=== PATIENT | female | born 2000 | race Caucasian/White ===

== ENCOUNTER 2023-04-16 13:23 | Inpatient (IN) | payer MEDICAID, SELFPAY ==
[2023-04-16 13:28] VITALS: BMI 34.7
[2023-04-16] MEDS: hyDROXYzine 25 mg Capsule 50 MG PO (13:58)
[2023-04-16 14:00] VITALS: BP 124/66; PULSE 86; RESP 18; TEMP 36.6; O2SAT 98
[2023-04-16] MEDS: LORazepam 2 mg/mL INJ 1 mL IM (15:42)
[2023-04-16] MEDS: diphenhydrAMINE 50 mg/mL SDV 1mL IM (15:42)
[2023-04-16] MEDS: haloperidol inj 5 mg/mL INJ 1 mL IM (15:42)
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
--- NOTE | 2023-04-16 15:51 | PC.NURSE ---
PT WAS A DIRECT ADMIT FROM JALEEL HENNESSY. PT HAS PAST HISTORY OF SUICIDE ATTEMPTS AND TOOK 20 BENADRYL. PT REPORTS THAT HER BEST FRIEND AND SHE BECAME REALLY SAD. PT HAS MULTIPLE SELF INFLICTED ABRASIONS TO THE BUE. PT STATES I ONLY DO IT WHEN I AM ANXIOUS. PT WAS RE-DIRECTABLE.
[2023-04-16 20:07] VITALS: BP 103/65; PULSE 75; RESP 15; TEMP 36.9; O2SAT 98
[2023-04-17 06:00] VITALS: BP 107/70; PULSE 66; RESP 16; TEMP 36.6; O2SAT 99
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
[2023-04-17] MEDS: buPROPion XL (24 HR) 150 mg Tablet PO (12:44)
[2023-04-17] MEDS: hyDROXYzine 25 mg Capsule 50 MG PO (13:36)
[2023-04-17] MEDS: OLANZapine 5 mg ODT PO (13:37)
[2023-04-17 14:00] VITALS: BP 99/60; PULSE 98; RESP 16; TEMP 36.8; O2SAT 99
[2023-04-17 20:25] VITALS: BP 113/66; PULSE 94; RESP 15; TEMP 36.9; O2SAT 97
[2023-04-18 06:00] VITALS: BP 108/57; PULSE 99; RESP 16; TEMP 36.7; O2SAT 96
[2023-04-18] MEDS: buPROPion XL (24 HR) 150 mg Tablet PO (08:58)
[2023-04-18] MEDS: OLANZapine 5 mg ODT PO (10:52)
--- NOTE | 2023-04-18 12:02 | P.NPUPN_ITS ---
Subjective NPU Subjective: Patient presented today reporting that she has a great fear that she is going to be kept for weeks. We continued to discuss that discharge planning is predicated on her functioning and that she has been here for few days and today is the first day that she has not had self aggressive behavior. We asked her continuing positive functioning and continuing the medication and that there would be no reason to expect a lengthy stay with her hitting those 2 harris. Mental Status Exam MSE Comments: This is an obese, white female, looking younger than her stated age, with appropriate grooming and limited eye contact. 40-bailey rub abrasions on each forearm and hand, self-created. No abnormal movements, except for mild psychomotor retardation. Cooperative with exam in mild distress. Speech was norm al rate and volume. Mood described as good, I just miss my family; affect congruent. Thought process, organized. Thought content: patient denied any suicidal or homicidal ideation, there were no delusions reported or noted, patient denied any auditory or visual hallucinations. Attention, concentration, and memory appeared intact, but none were formally tested. Alert and oriented times three. Insight and judgment appear fair. Impulse control is impaired. Vitals/I&O/Wt Last Vital Signs Temp 98.1 F 04/18/23 06:00 Pulse 99 04/18/23 06:00 Resp 16 04/18/23 06:00 BP 108/57 04/18/23 06:00 Pulse Ox 96 04/18/23 06:00 O2 Del Method Room Air 04/18/23 06:00 Weight last 48 hrs Weight 97.522 kg A&P Assessment and plan (1) History of posttraumatic stress disorder (PTSD): (2) Major depressive disorder, recurrent: (3) Bereavement: (4) Generalized anxiety disorder: Plan This is a 22, almost 23-year-old, white female, with a history of mental health issues going back to childhood, who presents to the hospital after expressing suicidal ideation, secondary to her best friend dying a couple of weeks ago, but also reporting that prior to her friend's , she was put on Celexa secondary to depressive symptoms after having a baby, who is now three months old. 1.? Continue current medication. 2.? Start Wellbutrin 150 mg po qdaily, with a possible plan to discontinue the Celexa. 3.? Encourage individual, group, and milieu therapy. 4.? Continue q-15-minute checks for safety. Involuntary Hold Information 96 Hour Hold: 96 Hour Involuntary Admission: No Attestations NPU Medical Necessity Statement*: Inpatient hospitalization is medically necessary and the clinically appropriate intervention, at this time. We will monitor medications and make changes as indicated. Patient will be in the hospital for over two midnights. Likely length of stay is three to five days. Coding Level of Care Code Acute Code for Chg Fwd Diagnoses History of posttraumatic stress disorder (PTSD) Z86.59 Major depressive disorder, recurrent F33.9 Bereavement Z63.4 Generalized anxiety disorder F41.1
[2023-04-18] MEDS: diphenhydrAMINE 50 mg Capsule PO (13:00)
[2023-04-18] MEDS: haloperidol 5 mg Tablet PO (13:00)
[2023-04-18] MEDS: LORazepam 2 mg Tablet PO (13:00)
--- NOTE | 2023-04-18 13:04 | PC.NURSE ---
Administered 5mg Zyprexa Zydis for pt feeling very anxious and wanting to self harm, pt came to talk with nursing staff before harming herself. Nursing staff encouraged pt to always come and talk when having those thoughts or feelings, pt contracts for safety. Pt was attending morning group at the time, and was triggered by the conversation's in the group setting.
--- NOTE | 2023-04-18 13:08 | PC.NURSE ---
Pt was given an Oral B52, for banging her head against the wall and hiding in her room behind the door from the nursing staff. Pt was crying and very anxious. Pt is seeing lots of other pt's discharging today.
[2023-04-18 14:00] VITALS: BP 118/64; PULSE 82; RESP 18; TEMP 36.6; O2SAT 98
[2023-04-18] MEDS: trazodone 50 mg Tablet PO (20:03)
[2023-04-18 20:09] VITALS: BP 122/83; PULSE 112; RESP 17; TEMP 36.6; O2SAT 99
[2023-04-19 06:00] VITALS: BP 106/67; PULSE 83; RESP 16; TEMP 36.7; O2SAT 93
[2023-04-19] MEDS: buPROPion XL (24 HR) 150 mg Tablet PO (08:32)
[2023-04-19] MEDS: hyDROXYzine 25 mg Capsule 50 MG PO (12:35)
[2023-04-19] MEDS: hydrocortisone 1% cream 28 gm 1 APPLIC TOPICAL (12:36)
[2023-04-19 13:55] VITALS: BP 128/85; PULSE 113; RESP 20; TEMP 36.6; O2SAT 97
--- NOTE | 2023-04-19 14:05 | P.NPUPN_ITS ---
Subjective NPU Subjective: Patient presented today reporting that she is doing better. She continues to give events out in the future that she does not want to miss and that she is hopeful she will be discharged by. We continue to reinforce the level of control she has over her discharge with her behaviors and choices. We discussed her impulse control and staff reports of improvement with requests for as needed's and no self or aggressive behaviors noted or reported. We discussed the possibility of discharge early next week if she continues this pattern. Mental Status Exam MSE Comments: This is an obese, white female, looking younger than her stated age, with appropriate grooming and limited eye contact. 40-bailey rub abrasions on each forearm and hand, self-created. No abnormal movements, except for mild psych omotor retardation. Cooperative with exam in mild distress. Speech was normal rate and volume. Mood described as good; affect congruent. Thought process, organized. Thought content: patient denied any suicidal or homicidal ideation, there were no delusions reported or noted, patient denied any auditory or visual hallucinations. Attention, concentration, and memory appeared intact, but none were formally tested. Alert and oriented times three. Insight and judgment appear fair. Impulse control is impaired. Vitals/I&O/Wt Last Vital Signs Temp 97.8 F 04/19/23 13:55 Pulse 113 H 04/19/23 13:55 Resp 20 H 04/19/23 13:55 BP 128/85 04/19/23 13:55 Pulse Ox 97 04/19/23 13:55 O2 Del Method Room Air 04/19/23 06:00 A&P Assessment and plan (1) History of posttraumatic stress disorder (PTSD): (2) Major depressive disorder, recurrent: (3) Bereavement: (4) Generalized anxiety disorder: Plan This is a 22, almost 23-year-old, white female, with a history of mental health issues going back to childhood, who presents to the hospital after expressing suicidal ideation, secondary to her best friend dying a couple of weeks ago, but also reporting that prior to her friend's , she was put on Celexa secondary to depressive symptoms after having a baby, who is now three months old. 1.? Continue current medication. 2.? Started Wellbutrin 150 mg po qdaily, with a possible plan to discontinue the Celexa. 3.? Encourage individual, group, and milieu therapy. 4.? Continue q-15-minute checks for safety. Involuntary Hold Information 96 Hour Hold: 96 Hour Involuntary Admission: No Attestations NPU Medical Necessity Statement*: Inpatient hospitalization is medically necessary and the clinically appropriate intervention, at this time. We will monitor medications and make changes as indicated. Likely length of stay is 3-4 days. Coding Level of Care Code Acute Code for Chg Fwd Diagnoses History of posttraumatic stress disorder (PTSD) Z86.59 Major depressive disorder, recurrent F33.9 Bereavement Z63.4 Generalized anxiety disorder F41.1
[2023-04-19] MEDS: OLANZapine 5 mg ODT PO (18:07)
[2023-04-19] MEDS: trazodone 50 mg Tablet PO (20:12)
[2023-04-19 20:39] VITALS: BP 162/98; PULSE 108; RESP 20; TEMP 36.8; O2SAT 98
[2023-04-20 06:00] VITALS: BP 106/66; PULSE 95; RESP 17; O2SAT 98
--- NOTE | 2023-04-20 08:26 | W.PM.NPUPNS ---
Subjective NPU Subjective: Patient presented today reporting that she is doing okay. She has not had any self aggressive behavior per staff and direct observation. We discussed her discharge as she is lobbying to leave today. We discussed our likely plan for discharge on Saturday and her continuing to demonstrate self restraint going a long way to making Saturday a solid discharge today. She continues to deny any side effects to the medication change. Mental Status Exam MSE Comments: This is an obese, white female, looking younger than her stated age, with appropriate grooming and limited eye contact. 40-bailey rub abrasions on each forearm and hand, self-created. No abnormal movements, except for mild psychomotor retardation. Cooperative with exam in mild distress. Speech was normal rate and volume. Mood described as good; affect congruent. Thought process, organized. Thought content: patient denied any suicidal or homicidal ideation, there were no delusions reported or noted, patient denied any auditory or visual hallucinations. Attention, concentration, and memory appeared intact, but none were formally tested. Alert and oriented times three. Insight and judgment appear fair. Impulse control is impaired. Vitals/I&O/Wt Last Vital Signs Temp 98.2 F 04/19/23 20:39 Pulse 95 04/20/23 06:00 Resp 17 04/20/23 06:00 BP 106/66 04/20/23 06:00 Pulse Ox 98 04/20/23 06:00 O2 Del Method Room Air 04/20/23 06:00 A&P Assessment and plan (1) History of posttraumatic stress disorder (PTSD): (2) Major depressive disorder, recurrent: (3) Bereavement: (4) Generalized anxiety disorder: Plan This is a 22, almost 23-year-old, white female, with a history of mental health issues going back to childhood, who presents to the hospital after expressing suicidal ideation, secondary to her best friend dying a couple of weeks ago, but also reporting that prior to her friend's , she was put on Celexa secondary to depressive symptoms after having a baby, who is now three months old. 1.? Continue current medication. 2.? Started Wellbutrin 150 mg po qdaily, with a possible plan to discontinue the Celexa. 3.? Encourage individual, group, and milieu therapy. 4.? Continue q-15-minute checks for safety. Involuntary Hold Information 96 Hour Hold: 96 Hour Involuntary Admission: No Attestations NPU Medical Necessity Statement*: Inpatient hospitalization is medically necessary and the clinically appropriate intervention, at this time. We will monitor medications and make changes as indicated. Likely length of stay is 2-3 days. Coding Level of Care Code Acute Code for Chg Fwd Diagnoses History of posttraumatic stress disorder (PTSD) Z86.59 Major depressive disorder, recurrent F33.9 Bereavement Z63.4 Generalized anxiety disorder F41.1
[2023-04-20] MEDS: buPROPion XL (24 HR) 150 mg Tablet PO (08:46)
[2023-04-20] MEDS: hydrocortisone 1% cream 28 gm 1 APPLIC TOPICAL (09:10)
[2023-04-20] MEDS: hyDROXYzine 25 mg Capsule 50 MG PO (09:57)
[2023-04-20] MEDS: OLANZapine 5 mg ODT PO (12:54)
[2023-04-20 14:00] VITALS: BP 112/78; PULSE 108; RESP 16; TEMP 36.6; O2SAT 99
[2023-04-20 19:58] VITALS: BP 112/79; PULSE 119; RESP 20; TEMP 36.8; O2SAT 95
[2023-04-20] MEDS: trazodone 50 mg Tablet PO (20:12)
[2023-04-21 06:00] VITALS: BP 107/72; PULSE 87; RESP 16; TEMP 36.6; O2SAT 97
[2023-04-21] MEDS: acetaminophen 325 mg Tablet 650 MG PO ×2 (06:33→12:04)
[2023-04-21] MEDS: buPROPion XL (24 HR) 150 mg Tablet PO (08:38)
[2023-04-21] MEDS: ibuprofen 600 mg Tablet PO (08:38)
[2023-04-21] MEDS: hydrocortisone 1% cream 28 gm 1 APPLIC TOPICAL (09:09)
--- NOTE | 2023-04-21 12:43 | W.PM.NPUPNS ---
Subjective NPU Subjective: Patient presented today reporting that she is doing fine. She has done a much better job of managing her impulses over the last 24 hours per staff and direct observation. We discussed a tentative plan for discharge in the morning. We discussed continuing the medications as they are and allowing her outpatient team to manage any changes. We discussed the treatment team returning tomorrow and ensuring that she has appropriate aftercare prior to discharge. Mental Status Exam MSE Comments: This is an obese, white female, looking younger than her stated age, with appropriate grooming and limited eye contact. 40-bailey rub abrasions on each forearm and hand, self-created. No abnormal movements. Cooperative with exam in mild distress. Speech was normal rate and volume. Mood described as good; affect congruent. Thought process, organized. Thought content: patient denied any suicidal or homicidal ideation, there were no delusions reported or noted, patient denied any auditory or visual hallucinations. Attention, concentration, and memory appeared intact, but none were formally tested. Alert and oriented times three. Insight and judgment appear fair. Impulse control is improving. Vitals/I&O/Wt Last Vital Signs Temp 97.9 F 04/21/23 06:00 Pulse 87 04/21/23 06:00 Resp 16 04/21/23 06:00 BP 107/72 04/21/23 06:00 Pulse Ox 97 04/21/23 06:00 O2 Del Method Room Air 04/21/23 06:00 Weight last 48 hrs Weight 103.079 kg Weight 103.079 kg A&P Assessment and plan (1) History of posttraumatic stress disorder (PTSD): (2) Major depressive disorder, recurrent: (3) Bereavement: (4) Generalized anxiety disorder: Plan This is a 22, almost 23-year-old, white female, with a history of mental health issues going back to childhood, who presents to the hospital after expressing suicidal ideation, secondary to her best friend dying a couple of weeks ago, but also reporting that prior to her friend's , she was put on Celexa secondary to depressive symptoms after having a baby, who is now three months old. 1.? Continue current medication. 2.? Started Wellbutrin 150 mg po qdaily, with a possible plan to discontinue the Celexa. Will allow outpatient team to consider discontinuation of Celexa given recent data that to antidepressants is generally better than 1 but it would be reasonable to consider a taper of the Celexa after discharge. 3.? Encourage individual, group, and milieu therapy. 4.? Continue q-15-minute checks for safety. Involuntary Hold Information 96 Hour Hold: 96 Hour Involuntary Admission: No Attestations NPU Medical Necessity Statement*: Inpatient hospitalization is medically necessary and the clinically appropriate intervention, at this time. We will monitor medications and make changes as indicated. Likely length of stay is 1-2 days. Coding Level of Care Code Acute Code for Chg Fwd Diagnoses History of posttraumatic stress disorder (PTSD) Z86.59 Major depressive disorder, recurrent F33.9 Bereavement Z63.4 Generalized anxiety disorder F41.1
[2023-04-21 14:00] VITALS: BP 119/80; PULSE 85; RESP 16; TEMP 37.2; O2SAT 99
[2023-04-21] MEDS: hyDROXYzine 25 mg Capsule 50 MG PO (17:55)
--- NOTE | 2023-04-21 17:56 | PC.NURSE ---
Administered 50mg Vistaril PO to patient for anxiety 11/14. Patient anxious about the wait to leave
[2023-04-21 19:41] VITALS: BP 123/79; PULSE 93; RESP 18; TEMP 36.9; O2SAT 98
[2023-04-21] MEDS: trazodone 50 mg Tablet PO (20:18)
[2023-04-22 06:00] VITALS: BP 127/85; PULSE 108; RESP 17; O2SAT 98
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
[2023-04-22 07:27] VITALS: BP 127/85; PULSE 108; RESP 17; O2SAT 98
[2023-04-22] MEDS: buPROPion XL (24 HR) 150 mg Tablet PO (08:21)
[2023-04-22] MEDS: hyDROXYzine 25 mg Capsule 50 MG PO (09:38)
== END 2023-04-22 11:17 | disposition home or self-care (01) | DRG 885 ==
PROVIDERS: Admitting Provider Psychiatry & Neurology Psychiatry; Visit Provider Psychiatry & Neurology Psychiatry
DX: F33.9 Major depressive disorder, recurrent, unspecified (principal); R45.851 Suicidal ideations; Z63.4 Disappearance and death of family member; Z62.810 Personal history of physical and sexual abuse in childhood; Z91.52 Personal history of nonsuicidal self-harm; F41.9 Anxiety disorder, unspecified
CPT/HCPCS: 96372; 97150; 97165; J1200; J1630; J2060; Q0163